=== PATIENT | male | born 1965 | race Caucasian/White ===

== ENCOUNTER → 2016-10-08 | Day surgery (SDC) | payer OTHER ==
[2016-10-08 08:25] LABS: HCT 52.5 % (42.0-52.0); HGB 17.5 g/dl (13.2-18.0); MCH 28.5 pg (25.0-31.0); MCHC 33.3 g/dL (32.0-36.0); MCV 85.6 fL (78.0-100.0); MPV 10.4 fL (6.0-9.5); RBC 6.13 M/uL (4.70-6.00); RDW 13.4 % (11.5-14.0); WBC 7.7 K/uL (4.0-10.5)
[2016-10-08 08:37] LABS: ALBUMIN 4.6 g/dL (3.5-5.0); BILIRUBIN - TOTAL 0.8 mg/dL (0.1-1.0); CREATININE 1.3 mg/dL (0.7-1.2); GLOBULIN (CALCULATION) 3.2 g/dL (2.2-4.2); POTASSIUM 4.4 mmol/L (3.5-5.1); TOTAL PROTEIN 7.8 g/dL (6.4-8.3)
== END | disposition home or self-care (01) ==
LOC: FAS 07:59
PROVIDERS: Surgery
DX: Z12.11 Encounter for screening for malignant neoplasm of colon (principal); F41.9 Anxiety disorder, unspecified; Z98.890 Other specified postprocedural states; Z79.899 Other long term (current) drug therapy
CPT/HCPCS: 36415; 80053; J2704